=== PATIENT | female | born 2000 | race Caucasian/White ===

== ENCOUNTER 2025-06-12 13:54 | Emergency (ER) | payer OTHER, SELFPAY ==
[2025-06-12] VITALS (26 sets, daily range): BP systolic 99–143; BP diastolic 49–110; PULSE 66–109; RESP 13–30; TEMP 36.2–36.6; O2SAT 97–100; BMI 25.9
--- NOTE | 2025-06-12 15:04 | ED.RN ---
PT. NOT FOLLOWING COMMANDS, INT. TREMOR OF BILATERAL ARMS, RESPIRATIONS EVEN AND REGULAR, REMAINS IN BED WITH EYES CLOSED AND ARMS AT SIDE UNLESS AROUSED BY PAINFUL STIMULI.
--- NOTE | 2025-06-12 15:09 | CT_ITS ---
PROCEDURE: BRAIN/HEAD WITHOUT CONTRAST 06/12/2025 REASON FOR EXAM: Altered mental status Hand tremor TECHNIQUE: BRAIN/HEAD WITHOUT CONTRAST Coronal and Sagittal reconstruction series were provided. One or more dose reduction techniques were used (e.g., Automated exposure control, adjustment of the mA and/or kV according to patient size, use of iterative reconstruction technique. RADIATION DOSE SUMMARY: CTDlvol: 44.99 mGy DLP: 745.49 mGycm COMPARISON: None. FINDINGS: Brain: No mass, mass effect or midline shift. No intra-axial or extra-axial hemorrhage. Normal gaitan-white interface. CSF Spaces: Unremarkable. Sinuses/Mastoids: Clear Bones: Intact CT/Brain/Head without Contrast IMPRESSION: No acute process is detected. [facility]
[2025-06-12] MEDS: 0.9% Normal Saline (1000mL) 1,000 ML 999 ML IV (15:16)
--- NOTE | 2025-06-12 15:26 | EX.ED.DYSGE1 ---
HPI History of Present Illness Chief Complaint: Neuro S/Sx Narrative Narrative: Patient is a 24-year-old female with past medical history of concussion, anxiety who presents to the emergency department with a chief complaint of hand tremors. According to family members at bedside noted that she had her hand started shaking at 1230 this afternoon and states that has been constant since then. They note that she recently had a workup and in [place] even though triage note states in [place]. Per family member she is following commands and does not have any history of seizures. Per family members at bedside they state that she was hit in the head with a softball and diagnosed with a concussion back in July was a significant time ago now. They did note that she has been under stress. [facility] Medical History Concussion (~02/17/25) Medical History no medical history Allergy/AdvReac Type Severity Reaction Status Date / Time No Known Allergies Allergy Verified 06/12/25 15:08 Social History Smoking Status: Never smoker ROS ROS ED ROS Narrative Review of systems unobtainable from the patient secondary to her unresponsive/altered mental status therefore acute care It applies EXAM Physical Exam Narrative Exam Narrative: General: Patient lying in bed rest comfortably did not appear to be in acute distress Head: Atraumatic, normocephalic Eyes: PERRL bilaterally, EOMI [place], no conjunctival injection noted Neck: Soft, supple, trachea midline Cardiovascular: Regular rate and rhythm Respiratory: Clear to auscultation bilaterally Abdomen: Soft, nondistended, no tenderness palpation Musculoskeletal: Patient had shaking of the bilateral upper extremities Extremities: Radial pulses +2/4 in the bilateral extremities Neurological: Patient was following commands she was able to squeeze my fingers she was not talking. Per nursing when they told her they were going to cut her dress off she was able to sit up and take this off herself. Her eyes remain closed however when I open them myself and brought my hand close to her eye she blanked and try to shut her eyes. Skin: Warm, dry, intact no rashes or lesions noted Const Vital Signs: 06/12/25 13:56 06/12/25 14:22 06/12/25 15:00 Temperature 98 F Temperature Source Oral Pulse Rate 97 95 92 Respiratory Rate 18 23 H 17 Blood Pressure 143/62 H 130/110 H Blood Pressure Mean 89 116 Pulse Ox 97 99 100 Oxygen Delivery Method Room Air Room Air 06/12/25 15:15 06/12/25 15:30 06/12/25 15:45 Temperature Temperature Source Pulse Rate 109 H 88 97 Respiratory Rate 21 H 17 16 Blood Pressure Blood Pressure Mean Pulse Ox 100 100 100 Oxygen Delivery Method 06/12/25 16:00 06/12/25 16:06 06/12/25 16:07 Temperature Temperature Source Pulse Rate 101 H 96 98 Respiratory Rate 24 H 23 H 20 H Blood Pressure 99/49 L 99/49 L Blood Pressure Mean 66 65 Pulse Ox 99 Oxygen Delivery Method Room Air 06/12/25 16:18 06/12/25 16:30 06/12/25 16:45 Temperature Temperature Source Pulse Rate 87 93 84 Respiratory Rate 15 17 14 Blood Pressure Blood Pressure Mean Pulse Ox 99 100 Oxygen Delivery Method 06/12/25 17:00 06/12/25 17:15 06/12/25 17:30 Temperature Temperature Source Pulse Rate 85 81 71 Respiratory Rate 18 22 H 22 H Blood Pressure 112/63 Blood Pressure Mean 79 Pulse Ox 99 99 Oxygen Delivery Method 06/12/25 17:45 06/12/25 18:00 Temperature Temperature Source Pulse Rate 85 77 Respiratory Rate 22 H 26 H Blood Pressure 118/70 Blood Pressure Mean 86 Pulse Ox Oxygen Delivery Method MDM MDM MDM Narrative Medical decision making narrative: Patient is a 24-year-old female who presents to the emergency department the chief complaint of shaking of her upper extremities. On the differential diagnosis includes but not limited to intracranial mass, intracranial hemorrhage, electrolyte abnormality, anxiety, involuntary abnormal shaking, seizure although clinically have low suspicion for this as she is following commands. Once workup is obtained reviewed she will be reevaluated Patient's CBC reviewed showed no evidence leukocytosis white blood count normal at 6.6, he was 13.3, plate count of 191. Patient sodium normal 140, potassium normal 4, creatinine normal at 0.60. Patient AST and ALT are 15 and 13 respectively. Patient lipase normal at 27 test negative. Patient urinalysis reviewed showed no evidence of infection. Drug screen negative alcohol level less than 10. Patient CT head and brain without contrast reviewed showed no acute processes identified. Asked social work to evaluate the patient for a mental health evaluation and she states that she provided resources to her for them to follow-up with did not feel that she warrants inpatient stabilization which I agree with. I reevaluated the patient she is feeling much better and would like to go home at this point time. All question concerns answered she was discharged home in stable condition. Parents at bedside are agreeable this plan. Lab Data Labs: Laboratory Results - last 24 hr 06/12/25 06/12/25 15:15 16:20 WBC 6.6 RBC 4.48 Hgb 13.3 Hct 37.3 MCV 83.3 MCH 29.7 MCHC 35.7 RDW Std Deviation 35.2 RDW Coeff of Lg 11.8 Plt Count 191 MPV 8.0 Immature Gran % (Auto) 0.300 Neut % (Auto) 69.3 Lymph % (Auto) 23.4 [place] % (Auto) 5.9 Eos % (Auto) 0.5 Baso % (Auto) 0.6 Absolute Neuts (auto) 4.6 Absolute Lymphs (auto) 1.54 Nucleated RBC % 0 Sodium 140 Potassium 4.0 Chloride 107 Carbon Dioxide 22.6 Anion Gap 10 BUN 9 Creatinine 0.60 L Estim Creat Clear Calc 145.39 Est GFR (MDRD) Non-Af 127 BUN/Creatinine Ratio 15.6 Glucose 93 Calcium 9.1 Total Bilirubin 1.77 H AST 15 ALT 13 Alkaline Phosphatase 73 Total Protein 7.0 Albumin 4.3 Globulin 2.7 Albumin/Globulin Ratio 1.6 Lipase 27 Serum , Qual NEGATIVE Urine Color Straw Urine Clarity Clear Urine pH 7.0 Ur Specific [place] 1.010 Urine Protein Negative Urine Glucose (UA) Normal Urine Ketones 5 H Urine Occult Blood Negative Urine Nitrite Negative Urine Bilirubin Negative Urine Urobilinogen Normal Ur Leukocyte Esterase 25 H Urine RBC 0-5 SEEN Urine WBC 0-5 SEEN Ur Squamous Epith Cells 0-5 SEEN Urine Bacteria 0 SEEN Urine Mucus 0 SEEN Urine Opiates Screen NEGATIVE U Buprenorphine Qual NEGATIVE Ur Oxycodone Screen NEGATIVE Urine Methadone Screen NEGATIVE Urine Fentanyl Screen NEGATIVE Ur Barbiturates Screen NEGATIVE Ur Phencyclidine Scrn NEGATIVE Ur Amphetamines Screen NEGATIVE U Benzodiazepines Scrn NEGATIVE Urine Cocaine Screen NEGATIVE U Cannabinoids Screen NEGATIVE Ethyl Alcohol < 10.1 Radiography Diagnostic Testing: Clinical Impression(s) from Imaging Studies Brain CT 06/12/25 15:09 IMPRESSION: No acute process is detected. Reading Location: [facility] Discharge Plan Triage Chief Complaint: Neuro S/Sx ED Provider: Shayne Lane Dx/Rx/DC Orders Clinical Impression: Abnormal involuntary movement, Anxiety, History of concussion Primary Care Provider: Jacob Boggs Referrals: Jacob Boggs PA-C [Primary Care Provider] - Activity Restrictions/Additional Instructions: Your blood work did not show any acute findings today. Your head CT was normal. Follow-up with the resources that were provided to you by the mental health team. Return with worsening symptoms or any other concerns Print Language: Kenyan Disposition Disposition: Home, Self Care
[2025-06-12 15:53] LABS: Hematocrit 37.3 % (37-47); Hemoglobin 13.3 g/dL (12.0-15.0); Immature Granulocytes Count 0.020 X10^3/uL (0.0-0.0); Mean Corp Hgb Conc 35.7 g/dL (32-36); Mean Corpuscular Volume 83.3 fL (81-99); Mean Platelet Vol. 8.0 fl (6.2-12.0); NRBC Flagged by Analyzer 0 % (0-5); Platelet Count 191 K/mm3 (150-450); RBC Distribution Width CV 11.8 % (11.6-14.6); RBC Distribution Width SD 35.2 fl (35.1-43.9); Red Blood Count 4.48 M/mm3 (4.2-5.4); White Blood Count 6.6 K/mm3 (4.4-11.0)
[2025-06-12 16:01] LABS: AST(SGOT) 15 U/L (<=31); Alanine Aminotransfer ALT/SGPT 13 U/L (<=34); Albumin, Serum 4.3 g/dL (3.5-5.0); Alkaline Phosphatase 73 U/L (35-104); Anion Gap 10 (5-15); BUN 9 mg/dL (4-19); BUN/Creat Ratio 15.6 RATIO (10-20); Calcium,Total 9.1 mg/dL (7.6-11.0); Carbon Dioxide 22.6 mmol/L (21.0-32.0); Chloride 107 mmol/L (98-108); Estimated Creatinine Clearance 145.39 ml/min (50-250); Globulin 2.7 g/dL (2.2-4.2); Glucose 93 mg/dL (70-99); Lipase 27 U/L (13-75); Potassium 4.0 mmol/L (3.3-5.1)
[2025-06-12 16:02] LABS: Alcohol, Blood (Medical)-Serum < 10.1 mg/dL (<=10.0)
[2025-06-12 16:08] LABS: Internal QC Validated? YES +Cl - CLEAR BKGD; Pregnancy, Serum, hCG Quali. NEGATIVE Negative; Record Kit Lot#, Serum Preg. 962302
--- OUTSIDE RECORDS SUMMARY | 2025-06-12 16:13 | XMS RPT_ITS | CCD ---
Author Organization [facility] Care Team Providers Care Batch And Furnace Operator Name Role Phone MICKEY ROLLINS Admitting Unavailable MICKEY ROLLINS Attending Unavailable MICKEY ROLLINS Primary Care Unavailable Problems Problem Classification Problem Date Documented Da te Episodic/Chronic Fever of unknown origin (2 sources) Fever, unspecified; Translations: [Fever, unspecified] Onset: 04-19-2020 Episodic Immunizations and screening for infectious disease (1 source) Encounter for observation for suspected exposure to other biological agents ruled out; Translations: [Encounter for observation for suspected exposure to other biological agents ruled out] Onset: 04-19-2020 Episodic Results Test Name Value Interpretation Reference Range Facil ity CORONAVIRUS [CCL]on 04-21-20 20 REF LAB REPORT Negative Normal [facility] Comment on above: Performed By: #### [id number] #### [place] [id number] COVID 19 Result PRODUCTION CONTROLLER Negative Normal [facility] Comment on above: Result Comment: Nega tive for COVID19 (SARS CoV2) by PCR. This test was developed and its performance characteristics determined by [facility] [place]. This test has been authorized by FDA under an Emergency Use Authorization (EUA). This test has been validated in accordance with the FDA's Guidance Document Policy for Diagnostics Testing in Laboratories Certified to Perform High Complexity Testing under CLIA prior to Emergency use Authorization for Coronavirus Disease 2019 during the Public Health Emergency issued on January 08, 2020. [facility] [employer] [address] [place] [id number] Driss Estrada III, M.D. [id number] Performed By: #### [id number] #### [address] [address] COVID 19 Source PRODUCTION CONTROLLER Nasopharyngeal Swab Normal [facility] Comment on above: Result Comment: Bud ected on 04/21 AT 0500: Previously reported as PRODUCTION CONTROLLER SWAB Performed By: #### [id number] #### [facility],[address] [place] [id number] Coronavirus 2019on 0 COVID 19 Result PRODUCTION CONTROLLER Normal Negative for COVID19 (SARS CoV2) by PCR. [facility] Comment on above: Result Comment: Nega tive for This test was developed and its performance characteristics determined by [facility]'s [facility] [place]. This test has been authorized by FDA under an Emergency Use Authorization (EUA). This test has been validated in accordance with the FDA's Guidance Document Policy for Diagnostics Testing in Laboratories Certified to Perform High Complexity Testing under CLIA prior to Emergency use Authorization for Coronavirus Disease 2019 during the Public Health Emergency issued on January 08, 2020. COVID19 (SARS This test was developed and its performance characteristics determined by [facility] [place]. This test has been authorized by FDA under an Emergency Use Authorization (EUA). This test has been validated in accordance with the FDA's Guidance Document Policy for Diagnostics Testing in Laboratories Certified to Perform High Complexity Testing under CLIA prior to Emergency use Authorization for Coronavirus Disease 2019 during the Public Health Emergency issued on January 08, 2020. CoV2) by PCR. This test was developed and its performance characteristics determined by [facility] [place]. This test has been authorized by FDA under an Emergency Use Authorization (EUA). This test has been validated in accordance with the FDA's Guidance Document Policy for Diagnostics Testing in Laboratories Certified to Perform High Complexity Testing under CLIA prior to Emergency use Authorization for Coronavirus Disease 2019 during the Public Health Emergency issued on January 08, 2020. COVID 19 Source PRODUCTION CONTROLLER Normal [facility] Comment on above: Result Comment: Naso pharyngeal Corrected on 04/21 AT 0500: Previously reported as PRODUCTION CONTROLLER SWAB Swab Corrected on 04/21 AT 0500: Previously reported as PRODUCTION CONTROLLER SWAB Encounters Encounter Date Encounter Type Care Provider Facility Start: 04-19-2020 End: 04-19-2020 Patient encounter procedure MICKEY ROLLINS [facility] Payers Date Payer Category Payer Unknown [id number] Unknown [id number] Summary Purpose Family History No Family History Records FoundNo Family History Records Found Advance Directives No Advanced Directives Records FoundNo Advanced Directives Records Found Additional Source Comments INFORMATION SOURCE (unrecogn ized section and content) DATE CREATED AUTHOR 04/21/2020 [facility] DATE CREATED AUTHOR AUTHOR'S ORGANIZ ATION 04/26/2020 [facility] FOR RECORDS PERTAINING TO PATIENTS WHO ARE OR HAVE BEEN ENROLLED IN A CHEMICAL DEPENDENCY/SUBSTANCEABUSE PROGRAM, SOME INFORMATION MAY BE OMITTED. This clinical summary was aggregated from multiple sources. Caution should be exercised in using it in the provision of clinical care. This summary normalizes information from multiple sources, and as a consequence, information in this document may materially change the coding, format and clinical context of patient data. In addition, data may be omitted in some cases. CLINICAL DECISIONS SHOULD BE BASED ON THE PRIMARY CLINICAL RECORDS. [employer] [facility]. provides no warranty or guarantee of the accuracy or completeness of information in this document.
[2025-06-12 16:35] LABS: Mucous, Urine 0 SEEN /hpf (<or=2+)
[2025-06-12 16:59] LABS: Color, Urine Straw (Yellow); Glucose, Dipstick Normal (Normal); Ketone-Dipstick 5 mg/dl (Negative); Leukocyte Esterase-Dipstick 25 /ul (Negative); Nitrite-Dipstick Negative (Negative); Occult Blood-Urine Negative /ul (Negative); Protein-Dipstick Negative (Negative); Specific Gravity, Urine 1.010 (1.002-1.030); Urine Bilirubin Dipstick Negative (Negative)
--- NOTE | 2025-06-12 17:30 | ED.RN ---
LAB CALLED FOR OUTSTANDING URINE RESULTS, RESPONSE I AM RUNNING EVERYONE'S SECOND PART NOW
[2025-06-12 17:42] LABS: Squamous Epithelial Cells - UA 0-5 SEEN /hpf (5-10)
[2025-06-12 17:43] LABS: Red Blood Cells-Urine 0-5 SEEN /hpf (0-5)
--- NOTE | 2025-06-12 18:33 | ED.RN ---
LAB CALLED FOR OUTSTANDING URINE TOXICOLOGY. RESPONSE, IT WAS MISLABELED WITH A CANCELED LABEL. IT IS RUNNING NOW
[2025-06-12 18:39] LABS: Barbiturate Urine NEGATIVE (< 200 ng/mL); Benzodiazepine Urine NEGATIVE (< 200 ng/mL); PCP Urine NEGATIVE (< 25 ng/mL); THC Urine NEGATIVE (< 50 ng/mL)
--- NOTE | 2025-06-12 19:39 | CM.ED ---
Social Work Psychiatric Assessment Reason for consult: Mental Health Informant(s): Patient, patient?s parents and review of medical records. Chief Complaint: Patient presented to the ED with hand tremors and at times, full body tremors/shaking. Patient?s parents stated that they (patient and her family) had just read a chapter today and normally, patient is the first one to go into the kitchen to help her mother with the cooking, but on this date, patient complained of not feeling good, took off her glasses and left to go lay down. Not long after, the tremors/shaking began. After patient was treated at the hospital with no known medical explanations for the presenting symptoms, a social work consult was requested to assess for potential mental health explanations/indicators. Marital/Social History/Sexual Orientation/Gender Identity: Single, heterosexual, female. Living Situation: Patient currently lives at home with her parents, 3 brothers (Alonzo, age 24, Rey, age 18 and Robert, age 9) and 3 sisters (Jeanette, age 22, Maureen, age 20, Yola, age 17 and twins Carolann and Lorene). Support/Resources: Patient identified her older sister, Beronica, age 32 as her main support. Beronica lives in her own home alone. 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 Mental Health Treatment/History: Denied Triggers/Stressors to mental health: Menstruation, over-doing it, and excessive fatigue were factors in which patient described as being precipitators to the tremors. Patient stated today is the worst the tremors have ever been. ?Patient stated that at times, when she is able to hear others talk however is not able to talk herself and is also physically limited and at times is only able to squeeze a hand if prompted. Coping Skills: Sleeping/resting History of Abuse (physical/sexual/verbal/emotional): Denied Substance Abuse Current/Historical: Denied Risk to Self/Others: ? Suicidal (thought/plan/intent/attempt): Denied ? Access to Lethal Means: Denied ? Homicidal (thought/plan/intent/attempt): ?Denied ? History of Violence (self/others/objects): Denied Mental Status Exam: ??? Orientation: Patient was oriented to person, place and time. ??? Memory: Good Appearance/General Behavior: Clean/appropriate, calm. Mood/Affect: Possibly depressed/Flat Communication Pattern: Patient responded to questions, though did not initiate communication. Tone was soft, volume was low/quiet. At times, social insurance specialist had to ask patient to speak up, which she did. Thought Process: Appropriate. Patient denied any history of or current auditory or visual hallucinations, paranoia, preoccupations or delusions. General Intellectual Functioning: Appears to be within or close to the average range. Unable to fully assess. Judgment: Appears to be good. Insight: Appears to be good. [facility] SUICIDAL IDEATION Ask questions 1 and 2. If both are negative, proceed to ?Suicidal Behavior? section. If the answer question 2 is yes, ask questions 3, 4, 5.? If the answer to question 1 and/or 2 is ?yes?, complete ?Intensity of Ideation? section below. 1. Wish to be ? Subject endorses thoughts about a wish to be or not alive anymore or wish to fall asleep and not wake up. Have you wished you were or wished you could go to sleep and not wake up? Lifetime: Time He/She Lohn Most Suicidal: ?No Past 1 month: No Please Describe if yes: ? 2. Non-Specific Active Suicidal Thoughts General, non-specific thoughts of wanting to end one?s life/commit suicide (e.g., ?I?ve thought about killing myself?) without thoughts of ways to kills oneself/associated methods, intent, or plan during the assessment period.? Have you actually had any thoughts of killing yourself? Lifetime: Time He/She Lohn Most Suicidal: ?No Past 1 month: No Please Describe if yes: 3. Active Suicidal Ideation with Any Methods (Not Plan) without Intent to Act Subject endorses thoughts of suicide and has thought of at least one method during the assessment period.? This is different than a specific plan with time, place, or method details worked out (e.g., thought of method to kills self but not a specific plan).? Includes person who would say ?I thought about thanking an overdose, but I never made a specific plan as to when, where or how. I would actually do it, and I would never go through with it.? Have you been thinking about how you might do this? Lifetime: Time He/She Lohn Most Suicidal: ? Past 1 month:? Please Describe if yes: 4. Active Suicidal Ideation with Some Intent to Act, without Specific Plan Active suicidal thoughts of kills oneself fand subject reports having some intent to act on such thoughts, as opposed to ?I have the thoughts but I definitely will not do anything about them.? Have you had these thoughts and had some intention of acting on them? Lifetime: Time He/She Lohn Most Suicidal: Past 1 month: Please Describe if yes: 5. Active Suicidal Ideation with Specific Plan and Intent Thoughts of kills oneself with details of plan fully or partially worked out and subject has some intent to care it out. Have you started to work out or worked out the details of how to kill yourself? Do you intend to carry out this plan? Lifetime: Time He/She Lohn Most Suicidal: Past 1 month: ??? Please Describe if yes: INTENSITY OF IDEATION The following feature should be rated with respect to the most sever type of ideation (i.e., 1-5 from above, with 1 being the least severe and 5 being the most severe). Ask about time he/she/they were feeling the most suicidal.? Lifetime - Most Severe Ideation: Type # (1-5): Description: Recent - Most Severe Ideation: Type # (1-5): Description: Frequency How many times have you had these thoughts? Lifetime: (1) Less than once a week??? (2) Once a week?? (3)? 2-5 times in week??? (4) Daily or almost daily??? (5) Many times each day Recent, Past 1 month:? (1) Less than once a week??? (2) Once a week?? (3)? 2-5 times in week??? (4) Daily or almost daily??? (5) Many times each day Duration When you have the thoughts, how long do they last? Lifetime: (1) Fleeting - few seconds or minutes? (2) Less than 1 hour/some of the time? (3) 1-4 hours/a lot of time? 4) 4-8 hours/most of day? (5) More than 8 hours/persistent or continuous Recent, Past 1 month:? (1) Fleeting - few seconds or minutes? (2) Less than 1 hour/some of the time? (3) 1-4 hours/a lot of time? 4) 4-8 hours/most of day? (5) More than 8 hours/persistent or continuous Controllability Could/can you stop thinking about killing yourself or wanting to if you want to? Lifetime:? (1) Easily able to control thoughts?? (2) Can control thoughts with little difficulty??? (3) Can control thoughts with some difficulty??? 4) Can control thoughts with a lot of difficulty? (5) Unable to control thoughts?? (0) Does not attempt to control thoughts Recent, Past 1 month: (1) Easily able to control thoughts?? (2) Can control thoughts with little difficulty??? (3) Can control thoughts with some difficulty??? 4) Can control thoughts with a lot of difficulty? (5) Unable to control thoughts?? (0) Does not attempt to control thoughts Deterrents Are there things - anyone or anything (e.g., family, christian, pain of ) - that stopped you from wanting to or acting on thoughts of committing suicide? Lifetime:? (1) Deterrents definitely stopped you from attempting suicide? (2) Deterrents probably stopped you?? (3) Uncertain that deterrents stopped you? (4) Deterrents most likely did not stop you? (5) Deterrents definitely did not stop you?? 0) Does not apply??? Recent:??? (1) Deterrents definitely stopped you from attempting suicide? (2) Deterrents probably stopped you?? (3) Uncertain that deterrents stopped you? (4) Deterrents most likely did not stop you? (5) Deterrents definitely did not stop you?? 0) Does not apply??? Reasons for Ideation What sort of reasons did you have for thinking about wanting to or killing yourself? Was it to end the pain or stop the way you were feeling (in other words you couldn?t go on living with this pain or how you were feeling) or was it to get attention, revenge or a reaction from others? Or both? Lifetime: (1) Completely to get attention, revenge or a reaction from?? (2) Mostly to get attention, revenge or a reaction from others? (3) Equally to get attention, revenge or a reaction from others? and to end/stop the pain?? ( 4) Mostly to end or stop the pain (you couldn?t go on living with the pain or how you were feeling)??? (5) Completely to end or stop the pain (you couldn?t go on living with the pain or? how you were feeling)??? (0)? Does not apply? Recent: (1) Completely to get attention, revenge or a reaction from?? (2) Mostly to get attention, revenge or a reaction from others? (3) Equally to get attention, revenge or a reaction from others? and to end/stop the pain??? (4) Mostly to end or stop the pain (you couldn?t go on living with the pain or how you were feeling)?? (5) Completely to end or stop the pain (you couldn?t go on living with the pain or? how you were feeling)?? (0)? Does not apply? SUICIDAL BEHAVIOR Actual Attempt: A potentially self-injurious act committed with at least some wish to , as a result of act.? Behavior was in part thought of as method to kill oneself.? Intent does not have to be 100%.? If there is any intent/desire to associated with the act, then it can be considered an actual suicide attempt.? There does not have to be any injury of harm, just the potential for injury or harm.? If person pulls trigger while gun is in mouth, but gun is broken so no injury results, this is considered an attempt.? Inferring intent:? Even if an individual denies intent/wish to , it may be inferred clinically from the behavior or circumstances.? For example, a highly lethal act that is clearly not an accident so no other intent but suicide can be inferred (e.g. gunshot to head, jumping from window of a high floor/story).? Also, if someone denies intent to , but they thought that what they did could be lethal, intent may be inferred.? Have you made a suicide attempt? Have you done anything to harm yourself? Have you done anything dangerous where you could have ? What did you do? Did you as a way to end your life? Did you want to (even a little) when you ? Were you trying to end your life when you ? Or did you think it was possible you could have from ? Or did you do it purely for other reasons/without ANY intention of killing yourself like to relieve stress, feel better, get sympathy, or get something else to happen)? (Self -Injurious Behavior without suicidal intent) Lifetime: No Past 3 months: No If yes, describe: Total # of Attempts in His/Her Lifetime: 0 Total # of attempts in Past 3 months: 0 Has person engaged in Non-Suicidal Self-Injurious Behavior? Lifetime: No Past 3 months: No Interrupted Attempt: When the person is interrupted (by an outside circumstance) from starting the potentially self-injurious act (if not for that, actual attempt would have occurred).? Overdose: Person has pills in hand but is stopped from ingesting. Once they ingest any pills, this becomes an attempt rather than an interrupted attempt. Shooting: Person has gun pointed toward self, gun is taken away by someone else, or is somehow prevented from pulling trigger. Once they pull the trigger, even if the gun fails to fire, it is an attempt. Jumping: Person is poised to jump, is grabbed and taken down from ledge.? Hanging: Person has noose around neck but has not yet started to hang self -is stopped from doing so.? Has there been a time when you started to do something to end your life but someone or something stopped you before you did anything? Lifetime: No Past 3 months: No If yes, describe: ? Total # of interrupted attempts in His/Her Lifetime: 0 Total # of interrupted attempts in Past 3 months: 0 Aborted or Self-Interrupted Attempt:? When person begins to take steps toward making a suicide attempt but stops themselves before they have actually engaged in any self-destructive behavior. Examples are like interrupted attempts, except that the individual stops him/herself, instead of being stopped by something else. Has there been a time when you started to do something to try to end your life, but you stopped yourself before you did anything? Lifetime: No Past 3 months: No If yes, describe: Total # of aborted or self-interrupted attempts in His/Her Lifetime: 0 Total # of aborted or self-interrupted attempts in Past 3 months: 0 Preparatory Acts or Behavior:? Acts or preparation towards imminently making a suicide attempt. This can include anything beyond a verbalization or thought, such as assembling a specific method (e.g., buying pills, purchasing a gun) or preparing for one?s by suicide (e.g., giving things away, writing a suicide note). Have you taken any steps towards making a suicide attempt or preparing to kill yourself (such as collecting pills, getting a gun, giving valuables away or writing a suicide note)? Lifetime: Past 3 months: No If yes, describe: ?No Total # of preparatory acts in His/Her Lifetime: 0 Total # of preparatory acts in Past 3 months: 0 Lethality/Medical Damage:??? 0. No physical damage or very minor physical damage (e.g., surface scratches). 1. Minor physical damage (e.g., lethargic speech; first-degree zabala; mild bleeding; sprains). 2. Moderate physical damage; medical attention needed (e.g., conscious but sleepy, somewhat responsive; second-degree zabala; bleeding of major vessel). 3. Moderately severe physical damage; medical hospitalization and likely intensive care required (e.g., comatose with reflexes intact; third-degree zabala less than 20% of body; extensive blood loss but can recover; major fractures). 4. Severe physical damage; medical hospitalization with intensive care required (e.g., comatose without reflexes; third-degree zabala over 20% of body; extensive blood loss with unstable vital signs; major damage to a vital area). 5. Most Recent attempt Date: Code: Most Lethal Attempt Date: Code: Initial/First Attempt Date: Code: Potential Lethality: Only Answer if Actual Lethality=0 Likely lethality of actual attempt if no medical damage (the following examples, while having no actual medical damage, had potential for very serious lethality: put gun in mouth and pulled the trigger but gun fails to fire so no medical damage; laying on train tracks with oncoming train but pulled away before run over). 0 = Behavior not likely to result in injury 1 = Behavior likely to result in injury but not likely to cause 2 = Behavior likely to result in despite available medical care Most Recent Attempt Code: Most Lethal Attempt Code: Initial/First Attempt Code: Assessment Summary: Patient was verbally engaged and cooperative. Lights in patient?s room were kept turned off as patient indicated that the lights hurt her eyes. Detective And Intelligence Analyst able to see with the lighting from the hallway and the room curtains being mostly pulled back. Patient stated the medication she was given to help manage pain in her head has helped and she was therefore able to talk.? It should be noted that for purposes of clarification, patient was assessed alone while her parents waited in the ED waiting room and then social insurance specialist solicited input from patient?s parents after the assessment was completed, all of whom were agreeable to. Patient stated in July of 2024, she was hit on the left episcopal with a softball and was told by a doctor in [place] that she suffered a severe concussion and that the impact cause some of the bones to shift which also resulted patient?s right eye being higher than her right eye. Patient reported the tremors are worse on the right side of her body. ?Patient?s parents reported the injury happed in [place] however they sought treatment in [place] with a chiropractor associated with [facility]. Patient is scheduled to begin cranial treatments through this institute in August of this year. Patient?s parents stated several of patient?s friends have had concussions as well, have gone to this place for treatment and have all had great results. ?Patient?s parents stated patient has really been struggling with being able to ?keep on top of things? since she got hit on the head with a softball. Patient stated she has also been diagnosed with Vertigo by KRISTIN Boggs with [facility]. It should be noted that when social insurance specialist arrived in the room, patient was under the covers and social insurance specialist could see movement with patient?s right hand under the covers. At times throughout the assessment, the movement stopped and other times, the movement resumed. Movement appeared to be minimal but very consistent with the rate and intensity in which the hand was moving. At one point, social insurance specialist also witnessed this with patient?s left hand, though that did not last for very long. Plan: ?After consulting with patient, patient?s parents and ED doctor, patient does not appear to have any mental health concerns that would indicate patient is a threat to self and/or others and patient is considered to be appropriate for discharge to home and to return to the ED should medical symptoms persist or worsen.? Detective And Intelligence Analyst provided patient with written resources for coping/stress management and counseling which patient accepted and expressed appreciation for. No other needs identified at this time. Francesca Jack, [employer], SERVICE MEMBER
== END 2025-06-12 20:20 | disposition home or self-care (01) ==
PROVIDERS: Emergency Provider Emergency Medicine; PCP Physician Assistant; Visit Provider Emergency Medicine
DX: S06.0XAA Concussion with loss of consciousness status unknown, initial encounter (principal); F41.9 Anxiety disorder, unspecified; R25.9 Unspecified abnormal involuntary movements
CPT/HCPCS: 70450; 80053; 80307; 81001; 82077; 83690; 84703; 85025; 96360; 99285